=== PATIENT | male | born 1975 | race Caucasian/White ===

== ENCOUNTER → 2016-11-24 | Day surgery (SDC) | payer OTHER, BC ==
[2016-11-09 10:36] VITALS: BMI 34.0
[~2016-11-24] VITALS: Ht 195.6 cm; Wt 129.6 kg
[~2016-11-24] MED LIST: ASPI325T45 PO; KETAMINE HCL INJ 50 MG/ML 10 ML VIAL ONE; LIDOCAINE HCL 2% 2 ML VIAL (20MG/ML) ONE; MIDAZOLAM HCL 1 MG/ML 2ML VIAL ONE; MULT-506 PO; PROPOFOL IV EMULSION 10 MG/ML 20 ML VIAL IV ONE; SODIUM CHLORIDE 0.9% INJ 10 ML VIAL ONE; TEST5GEL TOP; [UNRECOGNIZED DRUG - CODE] IM
[2016-11-24 12:20] VITALS: Ht 195.6 cm; Wt 129.6 kg
--- NOTE | 2016-11-24 13:13 | Endo History and Physical ---
History & Physical Date of Service: Nov 24, 2016. Chief Complaint: Acromegaly Referring Physician: Dr. Ward History of Present Illness For colonoscopy Past Surgical History Hx Cardiac Surgery: No Hx Internal Defibrillator: No Hx Pacemaker: No Hx Abdominal Surgery: No Hx of Implantable Prosthesis: No Hx Post-Op Nausea and Vomiting: No Hx Cancer Surgery: No Hx Thoracic Surgery: No Hx Orthopedic: No Hx Urinary Tract Surgery: No Family History None Social History Smoking Status: Former Smoker Hx Substance Use: No Hx Alcohol Use: Yes (OCCASIONALLY) Allergies Coded Allergies: NO KNOWN DRUG ALLERGIES (Verified Allergy, Unknown, ., 11/09/16) Current Medications Reported Home Medications Medications Dose Route/Sig Max Daily Dose Days Date Category Aspirin 325 Mg Tab 325 Mg PO QAM 11/09/16 Reported Multivitamin (Multivitamins) Tab 1 Tab PO QAM 11/09/16 Reported Androgel Pump (Testosterone) 1.62 % Gel 40.5 Mg TOP DAILY 11/09/16 Reported Somatuline Depot (Lanreotide Acetate) 90 Mg/0.3 Ml Inj 1 Dose IM EVERY 28 DAYS 11/09/16 Reported Vital Signs Weight (Kilograms): 129.55 Height (Feet): 6 Height (Inches): 5 Date Time Temp Pulse Resp B/P (MAP) Pulse Ox O2 Delivery O2 Flow Rate FiO2 11/24/16 12:27 36.6 69 18 164/87 (112) 98 Room Air Physical Exam General Appearance: + pertinent finding (face bone enlargement, right hemiparesis) Respiratory/Chest: Respiratory effort: no dyspnea Cardiovascular: Heart Auscultation: RRR Abdomen: Inspection & Palpation: soft Assessment and Plan Acromegaly for colonoscopy
--- NOTE | 2016-11-24 13:49 | Discharge Instructions ---
Endoscopy Patient Instructions Date / Procedure(s) Performed Nov 24, 2016. Colonoscopy Allergy Information Coded Allergies: NO KNOWN DRUG ALLERGIES (Verified Allergy, Unknown, ., 11/09/16) Discharge Date / Findings Nov 24, 2016. Redundant colon Medication Instructions Restart Stopped Medication(s): resume meds Reported Home Medications Medications Dose Route/Sig Max Daily Dose Days Date Category Aspirin 325 Mg Tab 325 Mg PO QAM 11/09/16 Reported Multivitamin (Multivitamins) Tab 1 Tab PO QAM 11/09/16 Reported Androgel Pump (Testosterone) 1.62 % Gel 40.5 Mg TOP DAILY 11/09/16 Reported Somatuline Depot (Lanreotide Acetate) 90 Mg/0.3 Ml Inj 1 Dose IM EVERY 28 DAYS 11/09/16 Reported Provider Instructions Activity Restrictions - No exercising or heavy lifting for 24 hours. - Do not drink alcohol the day of the procedure. - Do not drive a car or operate machinery until the day after the procedure. - Do not make any important decisions or sign important papers in 24 hours after the procedure. Following Day: - Return to full activity which may include returning to work/school. Diet Start your diet with liquids and light foods (jello, soup, juice, toast). Then eat your usual diet if not nauseated. Treatment For Common After Affects For mild abdominal pain, bloating, or excessive gas: - Rest - Eat lightly - Lie on right side Follow-Up Information Follow-up with Dr. Ward as scheduled Anesthesia Information What You Should Know You have had a procedure that required some medicine to reduce anxiety and discomfort. This treatment is called moderate sedation. After receiving the treatment, you may be sleepy, but you will be able to breathe on your own. The effects of the treatment may last for several hours. Follow these instructions along with Activity/Diet recommendations noted above: * Do NOT do anything where dizziness or clumsiness would be dangerous. * Rest quietly at home today, then you can be up and about tomorrow. * Have a responsible person stay with you the rest of today. * You may have had an I.V. today. If so, you may take the dressing off later today. Recommendations Call your doctor if: * Trouble breathing * Continuous vomiting for more than 24 hours * Temperature above 101 degrees * Severe abdominal pain or bloating * Pain not relieved by pain medicine ordered * There is increased drainage or redness from any incision * A large amount of rectal bleeding greater than 2-3 tablespoons. (If you had a polyp/s removed or have hemorrhoids, a small amount of blood - from the rectum is to be expected.) * You have any unanswered questions or concerns. IN THE EVENT OF A SERIOUS EMERGENCY, GO TO THE NEAREST EMERGENCY ROOM Your discharge instructions were prepared by provider Dante Casey. Patient Instructions Signature Page Wallace Tomi Patient (or Guardian) Signature/Date: I have read and understand the instructions given to me by my caregivers. Caregiver/RN/Doctor Signature/Date: The above-named patient and/or guardian has received patient instructions on this date. + Original Patient Signature Page (only) stays with chart. Please make copy for patient.
--- NOTE | 2016-11-24 13:52 | GI REPORT ---
Procedure Date: 11/24/2016 12:53 PM Procedure: Colonoscopy Indications: Acromegaly Medicines: Midazolam 2 mg IV, Propofol total dose 160 mg IV, Ketamine 50 mg IV, Lidocaine 40 mg IV Complications: No immediate complications. Estimated Blood Loss: Estimated blood loss: none. Procedure: Pre-Anesthesia Assessment: - Prior to the procedure, a History and Physical was performed, and patient medications, allergies and sensitivities were reviewed. The patient's tolerance of previous anesthesia was reviewed. - The risks and benefits of the procedure and the sedation options and risks were discussed with the patient. All questions were answered and informed consent was obtained. After I obtained informed consent, the scope was passed under direct vision. Throughout the procedure, the patient's blood pressure, pulse, and oxygen saturations were monitored continuously. The scope was introduced through the anus and advanced to the cecum, identified by appendiceal orifice and ileocecal valve. The colonoscopy was somewhat difficult due to significant looping. Successful completion of the procedure was aided by applying abdominal pressure. The patient tolerated the procedure well. The quality of the bowel preparation was good. Findings: The entire examined colon appeared normal. Impression: - The entire examined colon is normal. - No specimens collected. Recommendation: - Discharge patient to home (ambulatory). - Continue present medications. - Repeat colonoscopy in 5 years for surveillance. - Return to primary care physician PRN. Dante Casey M.D. Dante Casey MD 11/24/2016 1:52:13 PM This report has been signed electronically. Note Initiated On: 11/24/2016 12:53 PM I attest to the content of the Intraoperative Record and orders documented therein, exceptions below
--- NOTE | 2016-11-24 14:11 | Anesthesia Progress Nt - [facility] ---
Anesthesia Post Op Note Date & Time Nov 24, 2016 at 14:11 Vital Signs Pain Intensity: 0 Vital Signs Past 12 Hours Date Time Temp Pulse Resp B/P (MAP) Pulse Ox O2 Delivery O2 Flow Rate FiO2 11/24/16 14:09 67 18 127/87 (100) 98 Room Air 11/24/16 12:27 36.6 69 18 164/87 (112) 98 Room Air Notes Mental Status: alert / awake / arousable, participated in evaluation Pt Amnestic to Procedure: Yes Nausea / Vomiting: adequately controlled Pain: adequately controlled Airway Patency, RR, SpO2: stable & adequate BP & HR: stable & adequate Hydration State: stable & adequate Anesthetic Complications: no major complications apparent
[2016-11-24 14:21] VITALS: BP 133/84; PULSE 61; O2SAT 98
== END | disposition home or self-care (01) ==
LOC: C.GI 12:00
PROVIDERS: ATTEND Internal Medicine Gastroenterology
DX: G81.91 Hemiplegia, unspecified affecting right dominant side (principal); E22.0 Acromegaly and pituitary gigantism; Z79.899 Other long term (current) drug therapy; Z79.82 Long term (current) use of aspirin

== ENCOUNTER → 2016-12-23 | Outpatient (CLI) | payer OTHER, BC ==
[~2016-12-23] MED LIST changes: -KETAMINE HCL INJ 50 MG/ML 10 ML VIAL ONE; -LIDOCAINE HCL 2% 2 ML VIAL (20MG/ML) ONE; -MIDAZOLAM HCL 1 MG/ML 2ML VIAL ONE; -PROPOFOL IV EMULSION 10 MG/ML 20 ML VIAL IV ONE; -SODIUM CHLORIDE 0.9% INJ 10 ML VIAL ONE
[2016-12-23 13:36] LABS: DAYS OF ABSTINENCE 7; METHOD OF COLLECTION MASTURBATION; SEMEN COLOR YELLOW-GRAY (GRY/GRYWHTE); SEMEN TIME OF COLLECTION 1255; SEMEN VOLUME 1.5 ML (>1.5); TYPE OF SPECIMEN CONTAINER STERILE CUP
[2016-12-23 13:41] LABS: SPERM VIABILITY STAIN NOT PERFORMED % (>58%)
== END | disposition home or self-care (01) ==
LOC: C.LAB 12:13
PROVIDERS: ATTEND Specialist
DX: Z31.41 Encounter for fertility testing (principal)